=== PATIENT | male | born 1985 | race Caucasian/White ===

== ENCOUNTER → 2021-10-08 | Outpatient (CLI) | payer SELFPAY ==
--- NOTE | 2021-10-08 11:01 | CT ---
EXAMINATION TYPE: CT chest wo con DATE OF EXAM: 10/08/2021 COMPARISON: 10/08/2021 HISTORY: Bronchitis CT DLP: 460 mGycm. Automated Exposure Control for Dose Reduction was Utilized. TECHNIQUE: CT scan of the thorax is performed without IV contrast. FINDINGS: LUNGS: There is a large area of consolidated masslike attenuation involving the right upper lobe with air bronchograms most typical of pneumonia with right-sided hilar adenopathy no pleural effusion. Th ere is spotty nodular density seen in the right middle and lower lobe and peribronchial distribution although this could be postinflammatory. Neoplastic process would need to be excluded. Additional nod ular appearing density within the left lower lobe measuring 9 mm. Report called to the patient's refe rring clinician 10:57 AM 10/08/2021. MEDIASTINUM: Lack of IV contrast is noted to limit evaluation for mediastinal and especially hilar ad enopathy. There is coronary artery calcification. Aorta of normal caliber. Soft tissue prominence in the right hilum likely in the basis of adenopathy.. OTHER: There is a 5.7 cm lesion in the spleen which does not meet the criteria of a simple cyst measu ring 23 Hounsfield units. Liver low in attenuation correlate for hepatic steatosis.. IMPRESSION: 1. Large area of consolidation right upper lobe with air bronchograms and right hilar adenopathy. Dif ferential diagnosis would include a larger area of consolidative pneumonia. However, additional multi focal numerous nodular densities are seen in the right middle and lower lobe and left lower lobe. Alt david this could be postinfectious or postinflammatory. Neoplastic process should be excluded correla te clinically. 2. Indeterminate large splenic lesion measuring 5.7 cm. Recommend ultrasound. 3. Coronary artery atherosclerotic disease.
== END | disposition home or self-care (01) ==
LOC: RADCTMAIN 10:05
PROVIDERS: ATTEND Family Medicine
DX: I25.10 Atherosclerotic heart disease of native coronary artery without angina pectoris (principal); J98.4 Other disorders of lung; R59.0 Localized enlarged lymph nodes; D73.89 Other diseases of spleen
CPT/HCPCS: 71250

== ENCOUNTER 2021-10-10 11:00 | Inpatient (IN) | payer OTHER ==
[2021-10-10 11:59] LABS: Basophils % (A) 0 %; Eosinophils % (A) 0 %; HCT 37.5 % (39.0-53.0); HGB 12.7 gm/dL (13.0-17.5); Lymphocytes # (A) 0.6 k/uL (1.0-4.8); Lymphocytes % (A) 7 %; MCH 32.6 pg (25.0-35.0); MCHC 33.9 g/dL (31.0-37.0); MCV 96.1 fL (80.0-100.0); Mean Platelet Volume 8.4; Monocytes # (A) 0.4 k/uL (0-1.0); Monocytes % (A) 5 %; Neutrophils # (A) 7.5 k/uL (1.3-7.7); Neutrophils % (A) 86 %; Platelet Count 247 k/uL (150-450); RBC 3.91 m/uL (4.30-5.90); RDW 13.5 % (11.5-15.5); WBC 8.7 k/uL (3.8-10.6)
[2021-10-10] MEDS ORDERED: AZITHROMYCIN 500 MG in SODIUM CHLORIDE 0.9% 250 ML IVPB STA (12:02)
--- NOTE | 2021-10-10 12:08 | ED ---
General Adult HPI - General Chief complaint: Shortness of Breath Stated complaint: Sent by Lung DR Time Seen by Provider: 10/10/21 11:03 Source: patient, family, RN notes reviewed Mode of arrival: ambulatory Limitations: no limitations - History of Present Illness Initial comments: 36-year-old male presents emergency Department with chief complaint of abnormal chest x-ray, CT, shortness of breath. 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 Patient states he diagnosis irritated lungs he did follow up with urgent care who placed on some antibiotics and x-ray showed evidence of right lung consolidation patient had CT ordered 2 days ago w hich showed pneumonia, concern for neoplasm. Patient was either by pulmonary today and sent over for admission. - Related Data Allergies Allergy/AdvReac Type Severity Reaction Status Date / Time naproxen [From Aleve] Allergy Unknown Verified 10/10/21 11:08 Review of Systems ROS Statement: Those systems with pertinent positive or pertinent negative responses have been documented in the HPI. ROS Other: All systems not noted in ROS Statement are negative. Past Medical History Past Medical History: No Reported History History of Any Multi-Drug Resistant Organisms: None Reported Past Surgical History: No Surgical Hx Reported Past Psychological History: No Psychological Hx Reported Smoking Status: Never smoker Past Alcohol Use History: Occasional Past Drug Use History: None Reported General Exam Limitations: no limitations General appearance: alert, in no apparent distress Head exam: Present: atraumatic, normocephalic, normal inspection Eye exam: Present: normal appearance, PERRL, EOMI. Absent: scleral icterus, conjunctival injection, periorbital swelling ENT exam: Present: normal exam, normal oropharynx, mucous membranes moist Neck exam: Present: normal inspection. Absent: tenderness, meningismus, lymphadenopathy Respiratory exam: Present: rhonchi (Right). Absent: normal lung sounds bilaterally, respiratory distress, wheezes, rales, stridor Cardiovascular Exam: Present: regular rate, normal rhythm, normal heart sounds. Absent: systolic murmur, diastolic murmur, rubs, gallop, clicks Course Vital Signs 10/10/21 11:04 Temperature 97.9 F Pulse Rate 104 H Respiratory 20 Rate Blood Pressure 152/98 O2 Sat by Pulse 98 Oximetry Medical Decision Making - Medical Decision Making I did discuss the case with Dr. Rolon who evaluated the patient in office patient was evaluated by Dr. Deleon in the emergency Department, case discussed with some physician who accepts admission. Patient will have blood cultures, Legionella testing, placed on antibiotics - Lab Data Result diagrams: 10/10/21 11:43 Lab Results 10/10/21 Range/Units 11:43 WBC 8.7 (3.8-10.6) k/uL RBC 3.91 L (4.30-5.90) m/uL Hgb 12.7 L (13.0-17.5) gm/dL Hct 37.5 L (39.0-53.0) % MCV 96.1 (80.0-100.0) fL MCH 32.6 (25.0-35.0) pg MCHC 33.9 (31.0-37.0) g/dL RDW 13.5 (11.5-15.5) % Plt Count 247 (150-450) k/uL MPV 8.4 Neutrophils % 86 % Lymphocytes % 7 % Monocytes % 5 % Eosinophils % 0 % Basophils % 0 % Neutrophils # 7.5 (1.3-7.7) k/uL Lymphocytes # 0.6 L (1.0-4.8) k/uL Monocytes # 0.4 (0-1.0) k/uL Eosinophils # 0.0 (0-0.7) k/uL Basophils # 0.0 (0-0.2) k/uL Disposition Clinical Impression: Pneumonia, Lung consolidation Disposition: ADMITTED IP TO THIS HOSP Condition: Fair Referrals: Ricky Finn DO [Primary Care Provider] - 1-2 days Time of Disposition: 11:50
[2021-10-10 12:09] LABS: ALT 23 U/L (4-49); AST 36 U/L (17-59); African American GFR (CKD) >90 (>60 ml/min/1.73 sqM); Albumin 3.5 g/dL (3.5-5.0); Alkaline Phosphatase 72 U/L (38-126); Anion Gap 13 mmol/L; Blood Urea Nitrogen 22 mg/dL (9-20); Carbon Dioxide 22 mmol/L (22-30); Chloride 106 mmol/L (98-107); Glucose 132 mg/dL (74-99); Non-African American GFR(CKD) >90 (>60 ml/min/1.73 sqM); Potassium 3.4 mmol/L (3.5-5.1); Sodium 141 mmol/L (137-145); Total Bilirubin 0.4 mg/dL (0.2-1.3); Total Protein 6.9 g/dL (6.3-8.2)
[2021-10-10] MEDS ORDERED: PNEUMONIA PROTOCOL UTILIZED 1 EACH MISC PO PRN (12:09)
[2021-10-10 12:29] LABS: INR 0.9 (<1.2); Partial Thromboplastin Time 24.9 sec (22.0-30.0); Prothrombin Time 9.7 sec (9.0-12.0)
--- NOTE | 2021-10-10 12:45 | P.HPIM ---
History of Present Illness H&P Date: 10/10/21 Chief Complaint: Chest congestion and coughing Patient is a 36-year-old male with no significant past medical history who was sent to the ED by pulmonology for further workup of an abnormal computed tomography scan that was done 2 days ago. Patient states that he has been c oughing and feels congestion in his lungs for about a year. He states that a couple of days ago he was using some chemical on a washer to clean some aluminum and this irritated his lungs which made his congestion worse so he went to the urgent care where they gave him steroids and antibiotics and had him get a computed tomography scan. Patient then followed up with pulmonology who told him to come to the ED for further workup because the computed tomography scan showed large area of consolidation in the right upper lobe with right hilar adenopathy concerning for consolidative pneumonia versus neoplasm. Patient stated that sometimes he does have hemoptysis especially after he uses his albu terol inhaler and also productive cough that is greenish color. Patient has already been seen by pulmonology and he was started on azithromycin and Rocephin. Plan was for bronchoscopy however patient ate so bronchoscopy will be done tomorrow. 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 Review of Systems 10 ROS reviewed and are negative except as noted in HPI Past Medical History Past Medical History: No Reported History History of Any Multi-Drug Resistant Organisms: None Reported Past Surgical History: No Surgical Hx Reported Past Psychological History: No Psychological Hx Reported Smoking Status: Never smoker Past Alcohol Use History: Occasional Past Drug Use History: None Reported Medications and Allergies Allergies Allergy/AdvReac Type Severity Reaction Status Date / Time naproxen [From Aleve] Allergy Unknown Verified 10/10/21 11:08 Physical Exam Osteopathic Statement: *. No significant issues noted on an osteopathic structural exam other than those noted in the History and Physical/Consult. Vitals: Vital Signs Temp Pulse Resp BP Pulse Ox 10/10/21 11:04 97.9 F 104 H 20 152/98 98 Intake and Output 10/09/21 10/10/21 10/10/21 22:59 06:59 14:59 Other: Weight 95.254 kg General: [Alert and oriented, well nourished, no acute distress]. Eye: [PERRL, EOMI, normal conjunctiva]. HENT: [Normocephalic, clear tympanic membranes, normal hearing, moist oral mucosa, no scleral icterus, no sinus tenderness]. Neck: [Supple, non-tender, no carotid bruits, no JVD, no lymphadenopathy]. Lungs: [Clear to auscultation and percussion, non-labored respiration]. Heart: [Normal rate, regular rhythm, no murmur, gallop or edema]. Abdomen: [Soft, non-tender, non-distended, normal bowel sounds, no masses]. Musculoskeletal: [Normal range of motion and strength, no tenderness or swelling ]. Skin: [Skin is warm, dry and pink, no rashes or lesions]. Neurologic: [Awake, alert, and oriented X3, CN II-XII intact]. Psychiatric: [Cooperative, appropriate mood and affect]. Results CBC & Chem 7: 10/10/21 11:43 10/10/21 11:43 Labs: Abnormal Lab Results - Last 24 Hours (Table) 10/10/21 10/10/21 10/10/21 Range/Units 11:43 11:43 11:43 RBC 3.91 L (4.30-5.90) m/uL Hgb 12.7 L (13.0-17.5) gm/dL Hct 37.5 L (39.0-53.0) % Lymphocytes # 0.6 L (1.0-4.8) k/uL Potassium 3.4 L (3.5-5.1) mmol/L BUN 22 H (9-20) mg/dL Glucose 132 H (74-99) mg/dL Plasma Lactic Acid Freedom 2.2 H* (0.7-2.0) mmol/L Assessment and Plan Assessment: Right upper lobe consolidation with right hilar adenopathy Patient meets sepsis criteria (tachycardia and tachypnea) -Unclear etiology at this time but differential does include pneumonia versus neoplasm versus other etiology -We'll start the patient on IV Rocephin and azithromycin -Follow up on blood cultures -Obtain sputum culture -Check Legionella antigen -Patient scheduled for bronchoscopy tomorrow -Nothing by mouth past midnight -Patient currently satting well on room air -Lactic acid is 2.2. No need for fluid boluses lactic acid is less than 4 and patient is normotensive. CODE STATUS:full code DVT prophylaxis: mechanical Discussed with: Patient, ER, rn Anticipated length of stay < than [address]: home A total of 50 minutes was spent on the care of this complex patient more than 50% of the time was spent in counseling and care coordination.
[2021-10-10] MEDS ORDERED: IPRATROPIUM-ALBUTEROL 3 ML NEB INHALATION STA (13:40)
[2021-10-10] MEDS: IPRATROPIUM-ALBUTEROL 3 ML NEB INHALATION SCH ×3 (15:23→19:57)
--- NOTE | 2021-10-10 15:37 | P.CNPUL ---
History of Present Illness Consult date: 10/10/21 Requesting physician: Ricky Chang Reason for consult: dyspnea, chest pain, pneumonia, abnormal CXR/CT Chief complaint: Shortness of breath, right-sided pleuritic chest discomfort History of present illness: 36-year-old male patient who was seen for the first time today in the pulmonary office by Dr. Rolon on 10/10/2021 40 evaluation of extensive right lung pneumonia. Patient reports having symptoms for several weeks, with right-sided pleuritic chest discomfort, and dyspnea. He had a chest x-ray done at the urgent care clinic and was found to have an extensive consolidation of the right upper lobe. Patient's primary care physician, Dr. Finn obtained computed tomography scan of the chest which showed significant dense consolidation of the right upper lobe, with air bronchograms and right hilar adenopathy. There were other multifocal numerous nodular densities in the right middle and right lower lobe and left lower lobe with the possibility of postinfectious or postinfl ammatory etiology. Neoplastic process could not be completely excluded although infectious process was favored. There was an indeterminate large splenic lesion measuring 5.7 cm with a recommendation for follow-up ultrasound. Patient reports being treated with antibiotics on outpatient basis and she would feel better while on antibiotics however start feeling worse after completion of antibiotics. Patient reports sweats and chills, and in the last couple of days he reports having episodic hemoptysis. 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 More recently he was power washing a trailer with some acid material and there was some missed, and off this treatment and the patient was inhaling the fumes, made him quite short of breath. Patient is a lifetime nonsmoker. No history of asthma. No history of emphysema or previous pneumonias. Patient is currently taking a course of Levaquin 500 mg via mouth daily and doxycycline in addition to prednisone. He was started on a rescue inhaler. Repeat chest x-ray was done showing a dense consolidation of the right upper lobe which remained essentially unchanged. He does not have any exposure to birds. He has several animals around the house including doxepin and dogs and cats. In view of lack of improvement on patient's chest x-ray findings and continued shortness of breath, sweats, hemoptysis, patient was sent to the emergency department for evaluation, IV antibiotics, and possible bronchoscopy with BAL. Lab work in the ER showed white blood cell count of 8.7, hemoglobin of 12.7, coagulation profile was within normal limits, sodium is 141, potassium is 3.4, chloride is 106, CO2 is 22, BUN is 22, creatinine 0.80, lactic acid is 2.2, LFTs were within normal limits, troponin was less than 0.012. Blood cultures have been sent, sputum cultures have been ordered, she was started on azithromycin and Rocephin, breathing treatments, Legionella urine antigen has been ordered and pending Review of Systems All systems: negative Constitutional: Reports chills, Reports fatigue, Reports fever Eyes: denies blurred vision, denies pain Ears, nose, mouth and throat: Denies headache, Denies sore throat Cardiovascular: Reports shortness of breath, Denies chest pain Respiratory: Reports cough with sputum, Reports dyspnea, Reports hemoptysis, Denies cough Gastrointestinal: Denies abdominal pain, Denies diarrhea, Denies nausea, Denies vomiting Musculoskeletal: Denies myalgias Integumentary: Denies pruritus, Denies rash Neurological: Denies numbness, Denies weakness Psychiatric: Denies anxiety, Denies depression Endocrine: Denies fatigue, Denies weight change Past Medical History Past Medical History: No Reported History History of Any Multi-Drug Resistant Organisms: None Reported Past Surgical History: No Surgical Hx Reported Past Psychological History: No Psychological Hx Reported Smoking Status: Never smoker Past Alcohol Use History: Occasional Past Drug Use History: None Reported - Past Family History Father History Unknown: Yes Mother Family Medical History: Cancer Medications and Allergies Home Medications Medication Instructions Recorded Confirmed Type Doxycycline Hyclate 100 mg PO BID 10/10/21 10/10/21 History HYDROcodone/APAP 5-325MG [[place] 1 tab PO BID 10/10/21 10/10/21 History 5-325] Levofloxacin [Levaquin] 500 mg PO DAILY 10/10/21 10/10/21 History SILVER sulfADIAZINE Cream 1 applic TOPICAL DAILY PRN 10/10/21 10/10/21 History [Silvadene 1% Cream] predniSONE [Deltasone] 40 mg PO DAILY 10/10/21 10/10/21 History Allergies Allergy/AdvReac Type Severity Reaction Status Date / Time naproxen [From Aleve] Allergy Rash/Hives Verified 10/10/21 13:08 Physical Exam Vitals: Vital Signs Temp Pulse Resp BP Pulse Ox 10/10/21 11:04 97.9 F 104 H 20 152/98 98 Intake and Output 10/09/21 10/10/21 10/10/21 22:59 06:59 14:59 Other: Weight 95.254 kg GENERAL EXAM: Alert, very pleasant, 36-year-old white male, seen in the emergency department on room air pulse ox of 98% comfortable in no apparent distress. HEAD: Normocephalic/atraumatic. EYES: Normal reaction of pupils, equal size. Conjunctiva pink, sclera white. NOSE: Clear with pink turbinates. THROAT: No erythema or exudates. NECK: No masses, no JVD, no thyroid enlargement, no adenopathy. CHEST: No chest wall deformity. Symmetrical expansion. LUNGS: Equal air entry with diminished breath sounds and inspiratory crackles over right mid and lower lobe CVS: Regular rate and rhythm, normal S1 and S2, no gallops, no murmurs, no rubs ABDOMEN: Soft, nontender. No hepatosplenomegaly, normal bowel sounds, no guarding or rigidity. EXTREMITIES: No clubbing, no edema, no cyanosis, 2+ pulses and upper and lower extremities. MUSCULOSKELETAL: Muscle strength and tone normal. SPINE: No scoliosis or deformity SKIN: No rashes CENTRAL NERVOUS SYSTEM: Alert and oriented -3. No focal deficits, tone is normal in all 4 extremities. PSYCHIATRIC: Alert and oriented -3. Appropriate affect. Intact judgment and insight. Results - Laboratory Findings CBC and BMP: 10/10/21 11:43 10/10/21 11:43 Abnormal lab findings: Abnormal Labs 10/10/21 10/10/21 10/10/21 11:43 11:43 11:43 RBC 3.91 L Hgb 12.7 L Hct 37.5 L Lymphocytes # 0.6 L Potassium 3.4 L BUN 22 H Glucose 132 H Plasma Lactic Acid Freedom 2.2 H* - Diagnostic Findings CT scan - chest: report reviewed, image reviewed Assessment and Plan Plan: Assessment: #1. Right upper lobe pneumonia, possibly pneumococcal pneumonia, or Legionella pneumonia, community acquired, with failure of outpatient treatment. Patient has been symptomatic for several weeks with shortness of breath, pleuritic chest pain, with continued dense consolidation of right upper lobe on the chest x-ray. Possibility of neoplasm is not entirely excluded, but infectious etiology seems to be more likely #2. Lifetime nonsmoker #3. Lactic acidosis, mild, improved #4. Periodic difficulty swallowing and reflux Plan: We'll continue with azithromycin and Rocephin for empiric antibiotic coverage Blood cultures have been sent, urine Legionella antigen has been sent and pending Obtain a pro-calcitonin level, sputum specimen GI and DVT prophylaxis, gentle IV hydration We'll consult GI service for evaluation of periodic difficulty swallowing and gastric reflux symptoms Keep patient nothing by mouth after midnight We'll schedule for bronchoscopy with BAL tomorrow on 10/11/[address] Butts I have personally seen and examined the patient, performed the documentation and the assessment and plan as written. Number of minutes spent on the visit: [15] Time with Patient: Greater than 30
[2021-10-10] MEDS ORDERED: hydrALAZINE HCL 20 MG/ML 1 ML VIAL IVP STA (17:12)
[2021-10-10] MEDS ORDERED: IPRATROPIUM-ALBUTEROL 3 ML NEB INHALATION PRN (18:51)
[2021-10-10] MEDS: LOSARTAN-HCTZ 50-12.5 MG 1 EACH TAB PO SCH (21:17)
[2021-10-10] MEDS: HYDROcodone/APAP 5-325MG 1 EACH TAB PO PRN (21:17)
[2021-10-10] MEDS: SODIUM CHLORIDE 0.9% 1,000 ML IV SCH (21:18)
[2021-10-10] MEDS ORDERED: MELATONIN 5 MG TABLET PO PRN (23:06)
[2021-10-11] MEDS: IPRATROPIUM-ALBUTEROL 3 ML NEB INHALATION SCH ×5 (07:19→19:13)
--- NOTE | 2021-10-11 07:26 | XR ---
EXAMINATION TYPE: XR chest 2V DATE OF EXAM: 10/11/2021 COMPARISON: Chest CT 3 days ago HISTORY: Pneumonia. TECHNIQUE: Frontal and lateral views of the chest are obtained. FINDINGS: Persistent peripheral right midlung masslike consolidation corresponding to large suspecte d pneumonia involving primarily the right upper lobe with some right middle lobe involvement. Patchy groundglass opacities in the right lower lobe are redemonstrated. Left lung remains clear. The cardia c silhouette size is stable and within normal limits. The osseous structures are intact. IMPRESSION: Persistent peripheral large right lung focal pneumonia with additional multifocal infilt rates in the right lower lobe. No significant change from most recent x-ray.
[2021-10-11] MEDS: ENOXAPARIN 40 MG/0.4 ML SYRINGE SQ SCH (08:17)
[2021-10-11] MEDS: PANTOPRAZOLE 40 MG/10 ML VIAL IVP SCH (08:22)
[2021-10-11] MEDS: LOSARTAN-HCTZ 50-12.5 MG 1 EACH TAB PO SCH (08:23)
--- NOTE | 2021-10-11 10:16 | P.PN ---
Subjective Progress Note Date: 10/11/21 36-year-old male patient who was seen for the first time today in the pulmonary office by Dr. Rolon on 10/10/2021 40 evaluation of extensive right lung pneumonia. Patient reports having symptoms for several weeks, with right-sided pleuritic chest discomfort, and dyspnea. He had a chest x-ray done at the urgent care clinic and was found to have an extensive consolidation of the right upper lobe. Patient's primary care physician, Dr. Finn obtained computed tomography scan of the chest which showed significant dense consolidation of the right upper lobe, with air bronchograms and right hilar adenopathy. There were other multifocal numerous nodular densities in the right middle and right lower lobe and left lower lobe with the possibility of postinfectious or postinflammatory etiology. Neoplastic process could not be completely excluded although infectious process was favored. There was an indeterminate large splenic lesion measuring 5.7 cm with a recommendation for follow-up ultrasound. Patient reports being treated with antibiotics on outpatient basis and she would feel better while on antibiotics however start feeling worse after completion of antibiotics. Patient reports sweats and chills, and in the last couple of days he reports having episodic hemoptysis. 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 More recently he was power washing a trailer with some acid material and there was some missed, and off this treatment and the patient was inhaling the fumes, made him quite short of breath. Patient is a lifetime nonsmoker. No history of asthma. No history of emphysema or previous pneumonias. Patient is currently taking a course of Levaquin 500 mg via mouth daily and doxycycline in addition to prednisone. He was started on a rescue inhaler. Repeat chest x-ray was done showing a dense consolidation of the right upper lobe which remained essentially unchanged. He does not have any exposure to birds. He has several animals around the house including doxepin and dogs and cats. In view of lack of improvement on patient's chest x-ray findings and continued shortness of breath, sweats, hemoptysis, patient was sent to the emergency department for evaluation, IV antibiotics, and possible bronchoscopy with BAL. Lab work in the ER showed white blood cell count of 8.7, hemoglobin of 12.7, coagulation profile was within normal limits, sodium is 141, potassium is 3.4, chloride is 106, CO2 is 22, BUN is 22, creatinine 0.80, lactic acid is 2.2, LFTs were within normal limits, troponin was less than 0.012. Blood cultures have been sent, sputum cultures have been ordered, she was started on azithromycin and Rocephin, breathing treatments, Legionella urine antigen has been ordered and pending The patient is seen today 10/11/2021 in follow-up on the regular medical floor. He is currently resting fairly comfortably in bed. Awake and alert in no acute distress. Still with some right-sided chest discomfort. Still dyspneic with minimal exertion. He is maintaining O2 saturations in the mid 90s on room air. He's been afebrile. Hemodynamically stable. Chest x-ray continues to show persistent peripheral large right lung focal pneumonia with additional multifocal infiltrates in the right lower lobe. Legionella antigen was negative. Zamudio virus by PCR negative. Pro calcitonin 2.93. He is continued on ceftriaxone and azithromycin along with bronchodilators. Lovenox for DVT prophylaxis. Normal saline at 75 ML's per hour. Objective - Vital Signs Vital signs: Vital Signs Temp 98.5 F 10/11/21 02:00 Pulse 90 10/11/21 07:32 Resp 18 10/11/21 02:00 BP 136/88 10/11/21 02:00 Pulse Ox 96 10/11/21 02:00 Intake & Output 10/10/21 10/11/21 10/11/21 18:59 06:59 18:59 Intake Total 0 Balance 0 Weight 95.254 kg Intake: Oral 0 Other: Voiding Method Toilet Toilet # Voids 2 - Exam GENERAL EXAM: Alert, pleasant 36-year-old male patient, on room air, fairly comfortable in no apparent distress. HEAD: Normocephalic. EYES: Normal reaction of pupils, equal size. NOSE: Clear with pink turbinates. THROAT: No erythema or exudates. NECK: No masses, no JVD. CHEST: No chest wall deformity. LUNGS: Equal air entry with crackles, rhonchi in the right lung. CVS: S1 and S2 normal with no audible murmur, regular rhythm. ABDOMEN: No hepatosplenomegaly, normal bowel sounds, no guarding or rigidity. SPINE: No scoliosis or deformity SKIN: No rashes CENTRAL NERVOUS SYSTEM: No focal deficits, tone is normal in all 4 extremities. EXTREMITIES: There is no peripheral edema. No clubbing, no cyanosis. Peripheral pulses are intact. - Labs CBC & Chem 7: 10/10/21 11:43 10/10/21 11:43 Labs: Abnormal Lab Results - Last 24 Hours (Table) 10/10/21 10/10/21 10/10/21 Range/Units 11:43 11:43 11:43 RBC 3.91 L (4.30-5.90) m/uL Hgb 12.7 L (13.0-17.5) gm/dL Hct 37.5 L (39.0-53.0) % Lymphocytes # 0.6 L (1.0-4.8) k/uL Potassium 3.4 L (3.5-5.1) mmol/L BUN 22 H (9-20) mg/dL Glucose 132 H (74-99) mg/dL Plasma Lactic Acid Freedom 2.2 H* (0.7-2.0) mmol/L Procalcitonin (0.02-0.09) ng/mL 10/10/21 Range/Units 11:43 RBC (4.30-5.90) m/uL Hgb (13.0-17.5) gm/dL Hct (39.0-53.0) % Lymphocytes # (1.0-4.8) k/uL Potassium (3.5-5.1) mmol/L BUN (9-20) mg/dL Glucose (74-99) mg/dL Plasma Lactic Acid Freedom (0.7-2.0) mmol/L Procalcitonin 2.93 H (0.02-0.09) ng/mL Assessment and Plan Assessment: Right upper lobe pneumonia, possibly pneumococcal pneumonia, or Legionella pneumonia, community acquired, with failure of outpatient treatment. Patient has been symptomatic for several weeks with shortness of breath, pleuritic chest pain, with continued dense consolidation of right upper lobe on the chest x-ray. Possibility of neoplasm is not entirely excluded, but infectious etiology seems to be more likely. Legionella screen negative. Coronavirus negative. Blood and sputum cultures pending. Pro-calcitonin 2.93. Lifetime nonsmoker Lactic acidosis, mild, improved Periodic difficulty swallowing and reflux Large splenic lesion measuring 5.7 cm. Plan: The patient was seen and evaluated Continued on ceftriaxone and azithromycin Legionella screen negative, coronavirus negative Plan is for bronchoscopy with BAL today Obtain ultrasound of the spleen We will continue to follow and make further recommendations based on his clinical status I have personally seen and examined the patient, performed the documentation and the assessment and plan as written. Number of minutes spent on the visit: 10.
[2021-10-11] MEDS: AZITHROMYCIN 500 MG in SODIUM CHLORIDE 0.9% 250 ML IVPB SCH (10:28)
[2021-10-11] MEDS: SODIUM CHLORIDE 0.9% 1,000 ML IV SCH ×2 (11:51→20:05)
[2021-10-11] MEDS ORDERED: IV FLUID CONTINUATION 700 ML IV ONE (12:14)
[2021-10-11] MEDS ORDERED: PROPOFOL 10 MG/ML 20 ML VIAL IV ONE (12:18)
[2021-10-11] MEDS ORDERED: MIDAZOLAM 2 MG/2 ML VIAL ONE (12:18)
[2021-10-11] MEDS ORDERED: KETAMINE 10 MG/ML 20 ML VIAL ONE (12:18)
[2021-10-11] MEDS ORDERED: fentaNYL (PF) 50 MCG/ML 2 ML AMP ONE (12:18)
[2021-10-11] MEDS ORDERED: LIDOCAINE 2% INJ 20 MG/ML (2 ML VIAL) ONE (12:18)
[2021-10-11] MEDS ORDERED: LIDOCAINE 2% INJ 20 MG/ML INTRATRACH ONE (12:36)
--- NOTE | 2021-10-11 13:37 | OP ---
OPERATIVE REPORT OPERATIVE REPORT: Bronchoscopy, endobronchial biopsies of the right upper lobe bronchus, bronchoalveolar lavage of the right upper lobe, brushings of the right upper lobe bronchus, and BAL of the right upper lobe. The patient was given general anesthesia; initially started out with IV conscious sedation, but because of persistent vigorous cough and difficulty getting samples from the right upper lobe and adequate visualization of the mucosa, we changed anesthesia to general anesthetic. Patient was intubated by JOSE and he was placed on ventilation before doing any biopsies. PREOPERATIVE DIAGNOSIS: Right upper lobe pneumonia. POSTOPERATIVE DIAGNOSIS: Right upper lobe pneumonia. ANESTHESIA USED: As noted above. PROCEDURE DESCRIPTION: The patient was placed in supine position. He was initially given IV conscious sedation, and I was able to go through the right naris down to the area of the vocal cords. The vocal cords were patent. Then as I went down to the right mainstem bronchus, I visualized some purulent secretions in the right mainstem bronchus, and as I went into the right upper lobe, there was evidence of secretions with yellow color to them and mixed with blood. However, the patient had a significant amount of cough and it was a vigorous cough. I could not truly visualize the right upper lobe mucosa and the right upper lobe bronchus. Then I decided to go ahead and do a simple lavage. Then as I came out of the airways, we decided to go ahead and place the patient under general anesthesia and re-examine the right upper lobe. After the patient was intubated by [employer], I went back again with the bronchoscope. I visualized the right upper lobe very well. The mucosa was noted to be bronchiectatic, but no evidence of any endobronchial tumor. Biopsies of the nila of the right upper lobe bronchus were done, and BAL again was done of the right upper lobe. Then we examined the right middle lobe, right lower lobe, left upper lobe lingula and left lower lobe. There was no evidence of any purulent secretions. Mind you, during the second evaluation of the right upper lobe there were hardly any purulent secretions in the right upper lobe and there was again no evidence of any endobronchial tumor. Brushings of the mucosa were also done of the right upper lobe. Procedure was well tolerated. No complications. The patient will be extubated by [employer] soon. The fluid we obtained from the upper lobe was sent for different diagnostic studies. MMODL / IJN: [id number] /
[2021-10-11] MEDS: HYDROcodone/APAP 5-325MG 1 EACH TAB PO PRN ×2 (14:13→17:51)
--- NOTE | 2021-10-11 15:14 | US ---
EXAMINATION TYPE: US abdomen limited DATE OF EXAM: 10/11/2021 COMPARISON: NONE CLINICAL HISTORY: 5.7 cm lesion on spleen. EXAM MEASUREMENTS: Spleen: 13.7 cm Left Kidney: 12.3 x 5.6 x 4.3 cm Technically difficult, patient unable to hold his breath due to extensive coughing. 1. Spleen: measures large, Splenic lesion appears anechoic with posterior acoustic enhancement. 2. Left Kidney: wnl as seen, somewhat obscured by overlying bowel Anechoic egg shaped mass measuring 6.2 x 4.4 x 7.0, probable cyst IMPRESSION: Splenic lesion is favored to represent a cyst given CT and ultrasound appearance. This could represen t traumatic pseudocyst versus other etiologies. Correlation with prior history of trauma.
[2021-10-11] MEDS ORDERED: RX INFO: IV CONTRAST WAS GIVEN 1 EACH MISC MISCELLANE PRN (16:26)
--- NOTE | 2021-10-11 16:34 | XR ---
EXAMINATION TYPE: XR chest 1V portable DATE OF EXAM: 10/11/2021 4:28 PM COMPARISON: CT chest 10/08/2021. TECHNIQUE: XR chest 1V portable Frontal view of the chest. CLINICAL INDICATION:Male, 36 years old with history of pain right lung post bronch; FINDINGS: Lungs/Pleura: Similar consolidation within the right mid and upper lung. No evidence of pneumothorax. Pulmonary vascularity: Unremarkable. Heart/mediastinum: Cardiomediastinal silhouette is unremarkable. Musculoskeletal: No acute osseous pathology. IMPRESSION: Similar consolidation changes within the right mid upper lung without evidence for pneumothorax. No s ignificant change from prior.
--- NOTE | 2021-10-11 17:06 | CT ---
EXAMINATION TYPE: CT angio chest CT DLP: 460.7 mGycm, Automated exposure control for dose reduction was used. DATE OF EXAM: 10/11/2021 4:51 PM COMPARISON: . Chest radiograph from same day. Multiple CTs of the chest with most recent on 2. CLINICAL INDICATION:Male, 36 years old with history of PULMONARY EMBOLUS; cough, chest pain TECHNIQUE/CONTRAST: CTA scan of the thorax is performed with IV Contrast, patient injected with 57cc mL of Isovue 370, pu lmonary embolism protocol. MIP images are created and reviewed. FINDINGS: Pulmonary Artery: There is no evidence for a central filling defect within the pulmonary vasculature to suggest acute pulmonary embolism. Limited evaluation secondary to bolus timing. The pulmonary elisa ry is of normal size. Lungs/Pleura: Large area of consolidation within the right upper lobe which is similar prior. Patchy consolidation changes are seen within the right lower and right middle lobe as well as the left lower lobe to lesser extent. No evidence of pleural effusion or pneumothorax. Airway: Large airways are patent. Heart: Heart is within normal limits for size.. Vasculature: No evidence of aortic aneurysm. Mediastinum: No gross evidence of adenopathy. Musculoskeletal: No acute osseous abnormalities Soft Tissues: Unremarkable. Lower neck: No significant findings. Upper Abdomen: Similar hepatic cyst measuring up to 5.8 cm. IMPRESSION: 1. No evidence of central pulmonary embolism. Limited evaluation secondary to bolus timing. 2. Similar consolidation changes of the right upper lobe with scattered patchy consolidation changes throughout the remainder of the lungs. Correlate for pneumonia.
--- NOTE | 2021-10-11 17:21 | P.PN ---
Subjective Progress Note Date: 10/11/21 Principal diagnosis: Pneumonia Patient complaining of right upper chest pain. Patient states that he was worse after he got the bronchoscopy. Patient states that they had to sedate him really well since he kept on trying to pull out the scope. Patient stated that she still continuing to cough. He remained satting well on room air. Objective - Vital Signs Vital signs: Vital Signs Temp 97.5 F L 10/11/21 13:00 Pulse 92 10/11/21 15:35 Resp 18 10/11/21 02:00 BP 133/79 10/11/21 13:00 Pulse Ox 98 10/11/21 13:00 Intake & Output 10/10/21 10/11/21 10/11/21 18:59 06:59 18:59 Intake Total 0 600 Balance 0 600 Weight 95.254 kg Intake: IV 600 Oral 0 Other: Voiding Method Toilet Toilet # Voids 2 - Exam General examination - Alert and Oriented 3 in NAD Heart - + S1S2 no murmurs Lungs -diminished breath sounds bilaterally Abdomen soft NT ND +ve BS Extremities - No edema [employer] - Moving all 4 extremities spontaneously Psych - Calm and cooperative - Labs CBC & Chem 7: 10/10/21 11:43 10/10/21 11:43 Labs: Abnormal Lab Results - Last 24 Hours (Table) 10/10/21 Range/Units 11:43 Procalcitonin 2.93 H (0.02-0.09) ng/mL Microbiology - Last 24 Hours (Table) 10/11/21 12:25 Fungal Culture - Preliminary Bronchoalviolar Lavage - Right 10/11/21 12:25 Acid Fast Bacilli Culture - Preliminary Bronchoalviolar Lavage - Right 10/11/21 12:25 Bronchial Washings Culture - Preliminary Bronchial Washings - Right 10/10/21 11:43 Blood Culture - Preliminary Blood No Growth after 24 hours 10/10/21 11:30 Blood Culture - Preliminary Blood No Growth after 24 hours 10/11/21 07:30 Sputum Culture - Preliminary Sputum Assessment and Plan Assessment: Right upper lobe consolidation with right hilar adenopathy Patient meets sepsis criteria (tachycardia and tachypnea) -Unclear etiology at this time but differential does include pneumonia versus neoplasm versus other etiology -Patient calcitonin is elevated so likely pneumonia -We'll start the patient on IV Rocephin and azithromycin -Follow up on blood cultures -Follow up on sputum cultures from bronchoscopy done on 10/11/2021 -Legionella antigen is negative -Patient currently satting well on room air -Lactic acid normalized CODE STATUS:full code DVT prophylaxis: mechanical Discussed with: Patient, ER, rn Anticipated length of stay < than [address]: home A total of 50 minutes was spent on the care of this complex patient more than 50% of the time was spent in counseling and care coordination.
[2021-10-11 18:39] LABS: Appearance,BF Blood Tinged
[2021-10-11] MEDS: HYDROmorphone 1 MG/ML 1 ML SYRINGE IVP PRN (20:17)
[2021-10-12] MEDS: SODIUM CHLORIDE 0.9% 1,000 ML IV SCH ×2 (04:20→22:39)
[2021-10-12] MEDS: HYDROcodone/APAP 5-325MG 1 EACH TAB PO PRN (04:20)
[2021-10-12] MEDS: HYDROmorphone 1 MG/ML 1 ML SYRINGE IVP PRN ×4 (05:58→23:12)
[2021-10-12] MEDS: IPRATROPIUM-ALBUTEROL 3 ML NEB INHALATION SCH ×4 (07:07→19:38)
[2021-10-12] MEDS: ENOXAPARIN 40 MG/0.4 ML SYRINGE SQ SCH (08:29)
[2021-10-12] MEDS: PANTOPRAZOLE 40 MG/10 ML VIAL IVP SCH (08:29)
[2021-10-12] MEDS: LOSARTAN-HCTZ 50-12.5 MG 1 EACH TAB PO SCH (08:30)
[2021-10-12] MEDS: AZITHROMYCIN 500 MG in SODIUM CHLORIDE 0.9% 250 ML IVPB SCH (08:30)
[2021-10-12 09:33] LABS: HCT 39.5 % (39.6-50.0); HGB 12.9 g/dL (13.0-17.0); MCH 31.4 pg (27.0-32.0); MCHC 32.7 g/dL (32.0-37.0); MCV 96.1 fL (80.0-97.0); Mean Platelet Volume 10.6 fL (9.5-12.2); NRBC Per 100 WBC 0 /100 WBCS (0.0-0.0); Platelet Count 264 X 10*3/uL (140-440); RBC 4.11 X 10*6/uL (4.40-5.60); RDW 13.3 % (11.5-14.5); WBC 12.22 X 10*3/uL (4.50-10.00)
[2021-10-12 10:06] LABS: African American GFR (CKD) 132.3 (60.0-200.0); Anion Gap 12.8 mmol/L (10.00-18.00); BUN/Creat Ratio 18.13 Ratio (12.00-20.00); Blood Urea Nitrogen 14.5 mg/dL (9.0-27.0); Calcium 8.6 mg/dL (8.7-10.3); Carbon Dioxide 22.2 mmol/L (20.0-27.5); Non-African American GFR(CKD) 114.1 (60.0-200.0); Potassium 3.2 mmol/L (3.5-5.5)
--- NOTE | 2021-10-12 12:10 | P.PN ---
Subjective Progress Note Date: 10/12/21 36-year-old male patient who was seen for the first time today in the pulmonary office by Dr. Rolon on 10/10/2021 40 evaluation of extensive right lung pneumonia. Patient reports having symptoms for several weeks, with right-sided pleuritic chest discomfort, and dyspnea. He had a chest x-ray done at the urgent care clinic and was found to have an extensive consolidation of the right upper lobe. Patient's primary care physician, Dr. Finn obtained computed tomography scan of the chest which showed significant dense consolidation of the right upper lobe, with air bronchograms and right hilar adenopathy. There were other multifocal numerous nodular densities in the right middle and right lower lobe and left lower lobe with the possibility of postinfectious or postinflammatory etiology. Neoplastic process could not be completely excluded although infectious process was favored. There was an indeterminate large splenic lesion measuring 5.7 cm with a recommendation for follow-up ultrasound. Patient reports being treated with antibiotics on outpatient basis and she would feel better while on antibiotics however start feeling worse after completion of antibiotics. Patient reports sweats and chills, and in the last couple of days he reports having episodic hemoptysis. 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 More recently he was power washing a trailer with some acid material and there was some missed, and off this treatment and the patient was inhaling the fumes, made him quite short of breath. Patient is a lifetime nonsmoker. No history of asthma. No history of emphysema or previous pneumonias. Patient is currently taking a course of Levaquin 500 mg via mouth daily and doxycycline in addition to prednisone. He was started on a rescue inhaler. Repeat chest x-ray was done showing a dense consolidation of the right upper lobe which remained essentially unchanged. He does not have any exposure to birds. He has several animals around the house including doxepin and dogs and cats. In view of lack of improvement on patient's chest x-ray findings and continued shortness of breath, sweats, hemoptysis, patient was sent to the emergency department for evaluation, IV antibiotics, and possible bronchoscopy with BAL. Lab work in the ER showed white blood cell count of 8.7, hemoglobin of 12.7, coagulation profile was within normal limits, sodium is 141, potassium is 3.4, chloride is 106, CO2 is 22, BUN is 22, creatinine 0.80, lactic acid is 2.2, LFTs were within normal limits, troponin was less than 0.012. Blood cultures have been sent, sputum cultures have been ordered, she was started on azithromycin and Rocephin, breathing treatments, Legionella urine antigen has been ordered and pending The patient is seen today 10/11/2021 in follow-up on the regular medical floor. He is currently resting fairly comfortably in bed. Awake and alert in no acute distress. Still with some right-sided chest discomfort. Still dyspneic with minimal exertion. He is maintaining O2 saturations in the mid 90s on room air. He's been afebrile. Hemodynamically stable. Chest x-ray continues to show persistent peripheral large right lung focal pneumonia with additional multifocal infiltrates in the right lower lobe. Legionella antigen was negative. Zamudio virus by PCR negative. Pro calcitonin 2.93. He is continued on ceftriaxone and azithromycin along with bronchodilators. Lovenox for DVT prophylaxis. Normal saline at 75 ML's per hour. The patient is seen today the 2021 in follow-up on the regular medical floor. He is currently sitting up in a chair at the bedside. Awake and alert. He is afebrile. Maintaining O2 saturations in the mid 90s on room air. He is having quite a bit of right-sided chest discomfort. CT angiogram ruled out pul monary embolism. There is no noted large area of consolidation within the right upper lobe with patchy consolidation changes in the right lower lobe and middle lobe as well. Splenic lesion measuring 6.2 x 4.4 x 7.0 considered probable cyst. He did undergo bronchoscopy with BAL yesterday. Cultures are pending. White count 12.2. Hemoglobin 12.9. Platelet count 264. Sodium 133. Potassium 3.2. BUN 14.5. Creatinine 0.8. He remains on antibiotics in the form of ceftriaxone and azithromycin along with bronchodilators. Lovenox for DVT prophylaxis. Objective - Vital Signs Vital signs: Vital Signs Temp 98.6 F 10/12/21 04:21 Pulse 92 10/12/21 10:52 Resp 20 10/12/21 04:21 BP 143/90 10/12/21 08:34 Pulse Ox 95 10/12/21 04:21 Intake & Output 10/11/21 10/12/21 10/12/21 18:59 06:59 18:59 Intake Total 1500 500 Balance 1500 500 Intake: IV 600 Intake, IV Titration 900 Amount Sodium Chloride 0.9% 1, 900 000 ml @ 75 mls/hr IV . [id number] [facility] Rx#:[id number] Oral 500 Other: Voiding Method Toilet Toilet Toilet # Voids 3 - Exam GENERAL EXAM: Alert, 36-year-old male patient, on room air, fairly comfortable in no apparent distress. HEAD: Normocephalic. EYES: Normal reaction of pupils, equal size. NOSE: Clear with pink turbinates. THROAT: No erythema or exudates. NECK: No masses, no JVD. CHEST: No chest wall deformity. LUNGS: Equal air entry with crackles, rhonchi in the right lung. CVS: S1 and S2 normal with no audible murmur, regular rhythm. ABDOMEN: No hepatosplenomegaly, normal bowel sounds, no guarding or rigidity. SPINE: No scoliosis or deformity SKIN: No rashes CENTRAL NERVOUS SYSTEM: No focal deficits, tone is normal in all 4 extremities. EXTREMITIES: There is no peripheral edema. No clubbing, no cyanosis. Peripheral pulses are intact. - Labs CBC & Chem 7: 10/12/21 05:50 10/12/21 05:50 Labs: Abnormal Lab Results - Last 24 Hours (Table) 10/12/21 10/12/21 Range/Units 05:50 05:50 WBC 12.22 H (4.50-10.00) X 10*3/uL RBC 4.11 L (4.40-5.60) X 10*6/uL Hgb 12.9 L (13.0-17.0) g/dL Hct 39.5 L (39.6-50.0) % Sodium 133 L (135-145) mmol/L Potassium 3.2 L (3.5-5.5) mmol/L Glucose 133 H (70-110) mg/dL Calcium 8.6 L (8.7-10.3) mg/dL Microbiology - Last 24 Hours (Table) 10/11/21 12:25 Gram Stain - Preliminary Bronchial Washings - Right Bronchial Washings Culture - Preliminary 10/11/21 07:30 Gram Stain - Preliminary Sputum Sputum Culture - Preliminary 10/11/21 12:25 Fungal Culture - Preliminary Bronchoalviolar Lavage - Right 10/11/21 12:25 Acid Fast Bacilli Culture - Preliminary Bronchoalviolar Lavage - Right 10/10/21 11:43 Blood Culture - Preliminary Blood No Growth after 24 hours 10/10/21 11:30 Blood Culture - Preliminary Blood No Growth after 24 hours Assessment and Plan Assessment: Right upper lobe pneumonia, possibly pneumococcal pneumonia, or Legionella pneumonia, community acquired, with failure of outpatient treatment. Patient has been symptomatic for several weeks with shortness of breath, pleuritic chest pain, with continued dense consolidation of right upper lobe on the chest x-ray. Possibility of neoplasm is not entirely excluded, but infectious etiology seems to be more likely. Legionella screen negative. Coronavirus negative. Blood and sputum cultures pending. Pro-calcitonin 2.93. Bronchoscopy with BAL, brushings and biopsies performed on 10/11/2021. Cultures and cytology pending. Lifetime nonsmoker Lactic acidosis, mild, improved Periodic difficulty swallowing and reflux Large splenic lesion measuring 5.7 cm, probable cyst Plan: The patient was seen and evaluated CAT scan, ultrasound, labs reviewed Continued on ceftriaxone and azithromycin Bronchoscopy cultures and cytology pending Add Solu-Medrol for pleuritic pain We will continue to follow I have personally seen and examined the patient, performed the documentation and the assessment and plan as written. Number of minutes spent on the visit: 10.
[2021-10-12] MEDS ORDERED: POTASSIUM CHLORIDE ER 20 MEQ TAB.ER PO STA (13:01)
--- NOTE | 2021-10-12 13:04 | P.PN ---
Subjective Progress Note Date: 10/12/21 Principal diagnosis: Pneumonia Patient says that his right upper quadrant chest pain has been worsening. He states that he has been worsening since the bronchoscopy. Objective - Vital Signs Vital signs: Vital Signs Temp 98.6 F 10/12/21 04:21 Pulse 92 10/12/21 10:52 Resp 20 10/12/21 04:21 BP 143/90 10/12/21 08:34 Pulse Ox 95 10/12/21 04:21 Intake & Output 10/11/21 10/12/21 10/12/21 18:59 06:59 18:59 Intake Total 1500 500 Balance 1500 500 Intake: IV 600 Intake, IV Titration 900 Amount Sodium Chloride 0.9% 1, 900 000 ml @ 75 mls/hr IV . [id number] [facility] Rx#:[id number] Oral 500 Other: Voiding Method Toilet Toilet Toilet # Voids 3 - Exam General examination - Alert and Oriented 3 in NAD Heart - + S1S2 no murmurs Lungs -diminished breath sounds bilaterally Abdomen soft NT ND +ve BS Extremities - No edema [place]NER - Moving all 4 extremities spontaneously Psych - Calm and cooperative - Labs CBC & Chem 7: 10/12/21 05:50 10/12/21 05:50 Labs: Abnormal Lab Results - Last 24 Hours (Table) 10/12/21 10/12/21 Range/Units 05:50 05:50 WBC 12.22 H (4.50-10.00) X 10*3/uL RBC 4.11 L (4.40-5.60) X 10*6/uL Hgb 12.9 L (13.0-17.0) g/dL Hct 39.5 L (39.6-50.0) % Sodium 133 L (135-145) mmol/L Potassium 3.2 L (3.5-5.5) mmol/L Glucose 133 H (70-110) mg/dL Calcium 8.6 L (8.7-10.3) mg/dL Microbiology - Last 24 Hours (Table) 10/11/21 12:25 Gram Stain - Preliminary Bronchial Washings - Right Bronchial Washings Culture - Preliminary 10/11/21 07:30 Gram Stain - Preliminary Sputum Sputum Culture - Preliminary 10/11/21 12:25 Fungal Culture - Preliminary Bronchoalviolar Lavage - Right 10/11/21 12:25 Acid Fast Bacilli Culture - Preliminary Bronchoalviolar Lavage - Right 10/10/21 11:43 Blood Culture - Preliminary Blood No Growth after 24 hours 10/10/21 11:30 Blood Culture - Preliminary Blood No Growth after 24 hours Assessment and Plan Assessment: Right upper lobe consolidation with right hilar adenopathy Patient meets sepsis criteria (tachycardia and tachypnea) on admission -Unclear etiology at this time but differential does include pneumonia versus neoplasm versus other etiology -Proalcitonin is elevated so likely pneumonia -Resume IV Rocephin and azithromycin -Follow up on blood cultures -Follow up on cultures and cytology from bronchoscopy done on 10/11/2021 -Legionella antigen is negative -Patient currently satting well on room air -Lactic acid normalized -Pulmonology started the patient on IV Solu-Medrol for pleuritic chest pain -Patient also started on [place] for his chest pain -CT chest negative for pulmonary embolism CODE STATUS:full code DVT prophylaxis: mechanical Discussed with: Patient, ER, rn Anticipated length of stay < than [address]: home A total of 50 minutes was spent on the care of this complex patient more than 50% of the time was spent in counseling and care coordination.
[2021-10-12] MEDS: methylPREDNISolone SOD SUCCI 40 MG/ML 1 ML VIAL IV SCH ×2 (15:14→22:37)
[2021-10-13 05:50] VITALS: BP 142/89; RESP 18; TEMP 98.6
[2021-10-13] MEDS: IPRATROPIUM-ALBUTEROL 3 ML NEB INHALATION SCH ×2 (07:29→11:29)
[2021-10-13 07:33] VITALS: PULSE 94
[2021-10-13 08:51] LABS: Basophils # (A) 0.02 X 10*3/uL (0.00-0.10); Basophils % (A) 0.2 %; Eosinophils # (A) 0 X 10*3/uL (0.04-0.35); Eosinophils % (A) 0 %; HGB 12.9 g/dL (13.0-17.0); Immature Grans, Automated 2.8 %; Lymphocytes # (A) 0.96 X 10*3/uL (0.90-5.00); Lymphocytes % (A) 8.3 %; MCH 31.7 pg (27.0-32.0); MCHC 33.1 g/dL (32.0-37.0); MCV 95.8 fL (80.0-97.0); Mean Platelet Volume 10.3 fL (9.5-12.2); Monocytes # (A) 0.37 X 10*3/uL (0.20-1.00); Monocytes % (A) 3.2 %; NRBC Per 100 WBC 0 /100 WBCS (0.0-0.0); Neutrophils # (A) 9.85 X 10*3/uL (1.80-7.70); Neutrophils % (A) 85.5 %; Platelet Count 290 X 10*3/uL (140-440); RBC 4.07 X 10*6/uL (4.40-5.60); RDW 13.2 % (11.5-14.5); WBC 11.52 X 10*3/uL (4.50-10.00)
[2021-10-13] MEDS: ENOXAPARIN 40 MG/0.4 ML SYRINGE SQ SCH (08:51)
[2021-10-13] MEDS: PANTOPRAZOLE 40 MG/10 ML VIAL IVP SCH (08:51)
[2021-10-13] MEDS: LOSARTAN-HCTZ 50-12.5 MG 1 EACH TAB PO SCH (08:51)
[2021-10-13] MEDS: methylPREDNISolone SOD SUCCI 40 MG/ML 1 ML VIAL IV SCH (08:52)
[2021-10-13] MEDS: HYDROcodone/APAP 5-325MG 1 EACH TAB PO PRN (08:55)
[2021-10-13 09:21] LABS: African American GFR (CKD) 133.2 (60.0-200.0); Anion Gap 10.4 mmol/L (10.00-18.00); BUN/Creat Ratio 20.46 Ratio (12.00-20.00); Blood Urea Nitrogen 16.1 mg/dL (9.0-27.0); Calcium 9.2 mg/dL (8.7-10.3); Carbon Dioxide 25.8 mmol/L (20.0-27.5); Non-African American GFR(CKD) 114.9 (60.0-200.0); Potassium 4.7 mmol/L (3.5-5.5)
[2021-10-13] MEDS: AZITHROMYCIN 500 MG in SODIUM CHLORIDE 0.9% 250 ML IVPB SCH (09:25)
--- NOTE | 2021-10-13 13:13 | P.PN ---
Subjective Progress Note Date: 10/13/21 On today's evaluation of 10/12/2021, the patient is feeling better. No active pain or pleurisy at this point. He is ambulating. He remains on room air oxygen. Bronchoscopy was done. Transbronchial biopsies are still pending for now. Meanwhile, all of the cultures as well as been negative including negative COVID 19 infection, negative for Legionella urine antigen. The patient is also negative for influenza A and B. No fever. White cell count is minimally elevated. Noted the patient's level was elevated and as such was suspected bacterial infection. cat scan of the chest that was repeated in the hospital showed no significant interval change and the patient continued to have extensive consolidation of the right lung. he is currently on a combination of rocephin and zithromax. Objective - Vital Signs Vital signs: Vital Signs Temp 98.6 F 10/13/21 05:00 Pulse 94 10/13/21 07:30 Resp 18 10/13/21 05:00 BP 142/89 10/13/21 05:00 Pulse Ox 94 L 10/13/21 07:30 FiO2 Intake & Output 10/12/21 10/13/21 10/13/21 18:59 06:59 18:59 Intake Total 1500 800 Balance 1500 800 Intake: Intake, IV Titration 300 Amount Azithromycin 500 mg In 250 Sodium Chloride 0.9% 250 ml @ 250 mls/hr IVPB DAILY [facility] Rx#:[id number] cefTRIAXone 1 gm In 50 Sodium Chloride 0.9% 50 ml @ 100 mls/hr IVPB Q24HR [facility] Rx#:[id number] Oral 1200 800 Other: Voiding Method Toilet Toilet # Voids 4 2 - Exam GENERAL EXAM: Alert, 36-year-old male patient, on room air, fairly comfortable i n no apparent distress. HEAD: Normocephalic. EYES: Normal reaction of pupils, equal size. NOSE: Clear with pink turbinates. THROAT: No erythema or exudates. NECK: No masses, no JVD. CHEST: No chest wall deformity. LUNGS: Equal air entry with crackles, rhonchi in the right lung. CVS: S1 and S2 normal with no audible murmur, regular rhythm. ABDOMEN: No hepatosplenomegaly, normal bowel sounds, no guarding or rigidity. SPINE: No scoliosis or deformity SKIN: No rashes CENTRAL NERVOUS SYSTEM: No focal deficits, tone is normal in all 4 extremities. EXTREMITIES: There is no peripheral edema. No clubbing, no cyanosis. Peripheral pulses are intact. - Labs CBC & Chem 7: 10/13/21 05:30 10/13/21 05:30 Labs: Abnormal Lab Results - Last 24 Hours (Table) 10/13/21 10/13/21 Range/Units 05:30 05:30 WBC 11.52 H (4.50-10.00) X 10*3/uL RBC 4.07 L (4.40-5.60) X 10*6/uL Hgb 12.9 L (13.0-17.0) g/dL Hct 39.0 L (39.6-50.0) % Immature Gran # 0.32 H (0.00-0.04) X 10*3/uL Neutrophils # 9.85 H (1.80-7.70) X 10*3/uL Eosinophils # 0 L (0.04-0.35) X 10*3/uL BUN/Creatinine Ratio 20.46 H (12.00-20.00) Ratio Glucose 168 H (70-110) mg/dL Microbiology - Last 24 Hours (Table) 10/11/21 12:25 Gram Stain - Final Bronchial Washings - Right Bronchial Washings Culture - Final 10/11/21 07:30 Gram Stain - Final Sputum Sputum Culture - Final 10/11/21 12:25 Acid Fast Bacilli Smear - Final Bronchoalviolar Lavage - Right Acid Fast Bacilli Culture - Preliminary 10/10/21 11:43 Blood Culture - Preliminary Blood No Growth after 48 hours 10/10/21 11:30 Blood Culture - Preliminary Blood No Growth after 48 hours Assessment and Plan Plan: Right upper lobe pneumonia, possibly bacterial Legionella screen negative. Coronavirus negative. Blood and sputum cultures pending. Pro-calcitonin 2.93. Bronchoscopy with BAL, brushings and biopsies performed on 10/11/2021. Cultures and cytology pending. data the patient is improving. Highly suspect bacterial infection. we'll discharge him home on Levaquin 750 mg for the total of 10 days with a follow-up regarding the right lung consolidation. Lifetime nonsmoker Lactic acidosis, mild, improved Periodic difficulty swallowing and reflux Large splenic lesion measuring 5.7 cm, probable cyst Plan: The patient can be discharged home. He should rest at home for another one week. Levaquin for a total of 10 days 750 mg by mouth daily Awaiting final results of the cultures and biopsies from the right upper lobe Seen back in the office in 2 weeks time.
--- NOTE | 2021-10-13 13:40 | P.DS ---
Providers Date of admission: 10/10/21 12:09 Expected date of discharge: 10/13/21 Attending physician: Flako Bruner MD Consults: 10/10/21 11:55 Consult Physician Urgent Consulting Provider: Michael Deleon Consult Reason/Comments: Pneumonia, lung consolidation Do you want consulting provider notified?: Yes 10/10/21 12:05 Consult Physician Routine Consulting Provider: Lis Jorgensen Consult Reason/Comments: Possible GERD, pneumonia Do you want consulting provider notified?: Yes Primary care physician: Ricky Finn Hospital Course: Discharge Diagnosis: Right upper lung pneumonia Sepsis Pleuritic chest pain secondary to above Hospital Course: 36-year-old male patient who was seen for the first time today in the pulmonary office by Dr. Rolon on 10/10/2021 40 evaluation of extensive right lung pneumonia. Patient reports having symptoms for several weeks, with right-sided pleuritic chest discomfort, and dyspnea. He had a chest x-ray done at the urgent care clinic and was found to have an extensive consolidation of the right upper lobe. Patient's primary care physician, Dr. Finn obtained computed tomography scan of the chest which showed significant dense consolidation of the right upper lobe, with air bronchograms and right hilar adenopathy. There were other multifocal numerous nodular densities in the right middle and right lower lobe and left lower lobe with the possibility of postinfectious or postinflammatory etiology. Neoplastic process could not be completely excluded although infectious process was favored. There was an indeterminate large splenic lesion measuring 5.7 cm with a recommendation for follow-up ultrasound. Patient reports being treated with antibiotics on outpatient basis and she would feel better while on antibiotics however start feeling worse after completion of antibiotics. Patient reports sweats and chills, and in the last couple of days he reports having episodic hemoptysis. 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 More recently he was power washing a trailer with some acid material and there was some missed, and off this treatment and the patient was inhaling the fumes, made him quite short of breath. Patient is a lifetime nonsmoker. No history of asthma. No history of emphysema or previous pneumonias. Patient is currently taking a course of Levaquin 500 mg via mouth daily and doxycycline in addition to prednisone. He was started on a rescue inhaler. Repeat chest x-ray was done showing a dense consolidation of the right upper lobe which remained essentially unchanged. He does not have any exposure to birds. He has several animals around the house including doxepin and dogs and cats. In view of lack of improvement on patient's chest x-ray findings and continued shortness of breath, sweats, hemoptysis, patient was sent to the emergency department for evaluation, IV antibiotics, and possible bronchoscopy with BAL. Lab work in the ER showed white blood cell count of 8.7, hemoglobin of 12.7, coagulation profile was within normal limits, sodium is 141, potassium is 3.4, chloride is 106, CO2 is 22, BUN is 22, creatinine 0.80, lactic acid is 2.2, LFTs were within normal limits, troponin was less than 0.012. Patient was seen by pulmonology and had a bronchoscopy done. On the third day of admission patient reported significant improvement in his symptoms. He reported that his pain had improved. Patient states that he was walking the hallways. He was satting well on room air. He wanted to get discharge. Pulmonology recommended 10 more days of Levaquin. He was told by pulmonology to follow up in the clinic. Patient seen and examined at bedside.[] Vital signs reviewed and stable. General: [non toxic], [no distress], [appears at stated age] Derm: [warm], [dry] Head: [atraumatic], [normocephalic], [symmetric] Eyes: [EOMI], [no lid lag], [anicteric sclera] Mouth: [no lip lesion], [mucus membranes moist] Cardiovascular: [S1S2 reg], [no murmur], [positive posterior tibial pulse bilateral], Lungs: [CTA bilateral], [no rhonchi, no rales] , [no accessory muscle use] Abdominal: [soft], [ nontender to palpation], [no guarding], [no appreciable organomegaly] Ext: [no gross muscle atrophy], [no edema], [no contractures] Neuro: [ CN II-XI grossly intact], [no focal neuro deficits] Psych: [Alert], [oriented], [appropriate affect] A total of [33] minutes of time were spent preparing this complex discharge summary . Patient Condition at Discharge: Fair Plan - Discharge Summary Discharge Rx Participant: No New Discharge Prescriptions: New Losartan-Hctz 50-12.5 mg [Hyzaar 50-12.5] 1 each PO DAILY 30 Days #30 tab Levofloxacin [Levaquin] 750 mg PO DAILY 7 Days #7 tab Continue SILVER sulfADIAZINE Cream [Silvadene 1% Cream] 1 applic TOPICAL DAILY PRN PRN Reason: groin HYDROcodone/APAP 5-325MG [[place] 5-325] 1 tab PO BID Discontinued Doxycycline Hyclate 100 mg PO BID predniSONE [Deltasone] 40 mg PO DAILY Levofloxacin [Levaquin] 500 mg PO DAILY Discharge Medication List HYDROcodone/APAP 5-325MG [[place] 5-325] 1 tab PO BID 10/10/21 [History] SILVER sulfADIAZINE Cream [Silvadene 1% Cream] 1 applic TOPICAL DAILY PRN 10/10/21 [History] Levofloxacin [Levaquin] 750 mg PO DAILY 7 Days #7 tab 10/13/21 [Rx] Losartan-Hctz 50-12.5 mg [Hyzaar 50-12.5] 1 each PO DAILY 30 Days #30 tab 10/13/21 [Rx] Follow up Appointment(s)/Referral(s): Ricky Finn DO [Primary Care Provider] - 1-2 days Beryl Rolon MD [STAFF PHYSICIAN] - 1 Week Discharge Disposition: HOME SELF-CARE
--- NOTE | 2021-10-13 14:37 | P.CONS ---
History of Present Illness - Reason for Consult Consult date: 10/13/21 GERD Requesting physician: Michael Deleon - Chief Complaint Shortness of breath - History of Present Illness This is a pleasant 36-year-old male who presented to the emergency department 3 days ago with complaints of shortness of breath. Apparently patient had been seen outpatient by Dr. Rolon for right lung pneumonia. Patient was having symptoms for several weeks with right-sided pleuritic chest pain and dyspnea. He presented to the emergency department for further treatment of his pneumonia. Apparently patient had mentioned that he occasionally gets acid reflux once or twice a month depending on what he eats. Gastroenterology was consulted for this reason. Patient denies any abdominal pain, nausea vomiting. States shortness of breath and cough has improved. Denies any acid reflux during this admission. States it is mostly with certain foods that he eats or after eating out at a restaurant and drinking fountain pop. Patient states he occasionally will take omeprazole for the acid reflux. No previous history of peptic ulcer disease. No previous EGD. Denies frequent use of NSAIDs. Review of Systems REVIEW OF SYSTEMS: CARDIOPULMONARY: No chest pain or shortness of breath. Gastrointestinal: Occasional acid reflux, burning sensation in chest. No nausea or vomiting. No hematemesis, coffee-ground emesis. No rectal bleeding, or melena. GENITOURINARY: No dysuria or hematuria. MUSCULOSKELETAL: Reports normal range of motion., Joint pain. SKIN: No rashes. No jaundice. ENDOCRINE: No chills, fevers. No excessive weight gain or loss. No polydipsia or polyuria. PSYCHIATRIC: Unremarkable. NEUROLOGY: No change in mental status. Denies dizziness, headache. ENT: Vision unremarkable. CONSTITUTIONAL: No recent weight loss. No fever, chills, night sweats. Past Medical History Past Medical History: No Reported History History of Any Multi-Drug Resistant Organisms: None Reported Past Surgical History: No Surgical Hx Reported Past Anesthesia/Blood Transfusion Reactions: Unable to Obtain Additional Past Anesthesia/Blood Transfusion Reaction / Comm: Pt has never had surgery Past Psychological History: No Psychological Hx Reported Smoking Status: Never smoker Past Alcohol Use History: Occasional Past Drug Use History: None Reported - Past Family History Father History Unknown: Yes Mother Family Medical History: Cancer Medications and Allergies Home Medications Medication Instructions Recorded Confirmed Type HYDROcodone/APAP 5-325MG [[place] 1 tab PO BID 10/10/21 10/10/21 History 5-325] SILVER sulfADIAZINE Cream 1 applic TOPICAL DAILY PRN 10/10/21 10/10/21 History [Silvadene 1% Cream] Levofloxacin [Levaquin] 750 mg PO DAILY 7 Days #7 tab 10/13/21 Rx Losartan-Hctz 50-12.5 mg [Hyzaar 1 each PO DAILY 30 Days #30 tab 10/13/21 Rx 50-12.5] Allergies Allergy/AdvReac Type Severity Reaction Status Date / Time naproxen [From Aleve] Allergy Rash/Hives Verified 10/10/21 13:08 Physical Exam Vitals: Vital Signs Temp Pulse Pulse Resp BP Pulse Ox 10/13/21 07:30 94 94 L 10/13/21 05:00 98.6 F 85 18 142/89 94 L 10/12/21 21:00 98.9 F 117 H 20 152/86 96 10/12/21 19:50 90 10/12/21 19:38 100 96 10/12/21 15:43 82 10/12/21 15:34 80 10/12/21 13:55 98.8 F 106 H 16 136/91 94 L 10/12/21 12:00 94 L 10/12/21 10:52 92 10/12/21 10:41 92 Intake and Output 10/12/21 10/13/21 10/13/21 22:59 06:59 14:59 Intake Total 1500 800 Balance 1500 800 Intake: Intake, IV Titration 300 Amount Azithromycin 500 mg In 250 Sodium Chloride 0.9% 250 ml @ 250 mls/hr IVPB DAILY [facility] Rx#:[id number] cefTRIAXone 1 gm In 50 Sodium Chloride 0.9% 50 ml @ 100 mls/hr IVPB Q24HR [facility] Rx#:[id number] Oral 1200 800 Other: Voiding Method Toilet # Voids 4 2 General appearance: The patient is alert, oriented, appears in no acute distress. HET: Head is normocephalic and atraumatic. Conjunctiva pink. Sclera anicteric. Neck: Supple without lymphadenopathy. Trachea midline. Heart: S1 S2. Regular rate and rhythm. Lungs: Crackles in the right lung. Abdomen: Soft, nontender, nondistended with bowel sounds. No guarding or rigidity. Skin: No rashes. No jaundice. Extremities: Normal skin color and turgor. No pedal edema. Neurological: No focal deficits. Alert and oriented x3. Results CBC & Chem 7: 10/13/21 05:30 10/13/21 05:30 Labs: Abnormal Lab Results - Last 24 Hours (Table) 10/12/21 10/12/21 10/13/21 Range/Units 05:50 05:50 05:30 WBC 12.22 H 11.52 H (4.50-10.00) X 10*3/uL RBC 4.11 L 4.07 L (4.40-5.60) X 10*6/uL Hgb 12.9 L 12.9 L (13.0-17.0) g/dL Hct 39.5 L 39.0 L (39.6-50.0) % Immature Gran # 0.32 H (0.00-0.04) X 10*3/uL Neutrophils # 9.85 H (1.80-7.70) X 10*3/uL Eosinophils # 0 L (0.04-0.35) X 10*3/uL Sodium 133 L (135-145) mmol/L Potassium 3.2 L (3.5-5.5) mmol/L BUN/Creatinine Ratio (12.00-20.00) Ratio Glucose 133 H (70-110) mg/dL Calcium 8.6 L (8.7-10.3) mg/dL 10/13/21 Range/Units 05:30 WBC (4.50-10.00) X 10*3/uL RBC (4.40-5.60) X 10*6/uL Hgb (13.0-17.0) g/dL Hct (39.6-50.0) % Immature Gran # (0.00-0.04) X 10*3/uL Neutrophils # (1.80-7.70) X 10*3/uL Eosinophils # (0.04-0.35) X 10*3/uL Sodium (135-145) mmol/L Potassium (3.5-5.5) mmol/L BUN/Creatinine Ratio 20.46 H (12.00-20.00) Ratio Glucose 168 H (70-110) mg/dL Calcium (8.7-10.3) mg/dL Microbiology - Last 24 Hours (Table) 10/11/21 07:30 Gram Stain - Final Sputum Sputum Culture - Final 10/11/21 12:25 Acid Fast Bacilli Smear - Final Bronchoalviolar Lavage - Right Acid Fast Bacilli Culture - Preliminary 10/10/21 11:43 Blood Culture - Preliminary Blood No Growth after 48 hours 10/10/21 11:30 Blood Culture - Preliminary Blood No Growth after 48 hours 10/11/21 12:25 Gram Stain - Preliminary Bronchial Washings - Right Bronchial Washings Culture - Preliminary Assessment and Plan (1) GERD (gastroesophageal reflux disease) Narrative/Plan: 36-year-old female who was admitted to the hospital for recurrent pneumonia. Has a history of occasional acid reflux. Patient states is diet related. Occasionally takes omeprazole. No history of EGD, peptic ulcer disease, or frequent NSAID use. Gastroenterology was consulted for acid reflux. Will treat conservatively with medication. No plans on endoscopic evaluation. Discussed with patient to avoid caffeine, smoking, alcohol, acidic foods, eating late at night, and encouraged to take omeprazole. Status: Acute Code(s): K21.9 - GASTRO-ESOPHAGEAL REFLUX DISEASE WITHOUT ESOPHAGITIS SNOMED Code(s): 216583058 (2) Pneumonia Status: Acute Code(s): J18.9 - PNEUMONIA, UNSPECIFIED ORGANISM SNOMED Code(s): 330043712 Plan: 1. Continue symptomatic and supportive care 2. No plan for an endoscopic evaluation 3. Recommend omeprazole 40 mg daily outpatient 4. Discussed with patient to avoid caffeine, acidic foods, smoking, eating late at night 5. Follow-up with gastroenterology as needed. Thank you for this consultation, we will sign off at this time. Dr. Javid Jorgensen I agree with the dictator's note, documented as a scribe by Karlee Montemayor.
== END 2021-10-13 14:26 | disposition home or self-care (01) | DRG 853 ==
LOC: EC 11:00 → 5NMEDONC 12:09
PROVIDERS: ADMIT Internal Medicine; ATTEND Internal Medicine
PROC: 0BBC8ZX Excision of Right Upper Lung Lobe, Via Natural or Artificial Opening Endoscopic, Diagnostic (ICD-10-PCS; principal; 2021-10-11 12:30)
PROC: 0BD48ZX Extraction of Right Upper Lobe Bronchus, Via Natural or Artificial Opening Endoscopic, Diagnostic (ICD-10-PCS; principal; 2021-10-11 12:30)
PROC: 0B9C8ZX Drainage of Right Upper Lung Lobe, Via Natural or Artificial Opening Endoscopic, Diagnostic (ICD-10-PCS; principal; 2021-10-11 12:30)
DX: A41.9 Sepsis, unspecified organism (principal); J18.9 Pneumonia, unspecified organism; E87.2 Acidosis; R04.2 Hemoptysis; J47.0 Bronchiectasis with acute lower respiratory infection; R13.10 Dysphagia, unspecified; K21.9 Gastro-esophageal reflux disease without esophagitis; R59.0 Localized enlarged lymph nodes; D73.4 Cyst of spleen; Z28.310 Unvaccinated for COVID-19; Z20.822 Contact with and (suspected) exposure to COVID-19; Z88.6 Allergy status to analgesic agent; Z57.5 Occupational exposure to toxic agents in other industries; Z80.9 Family history of malignant neoplasm, unspecified
CPT/HCPCS: 31623; 31624; 31625; 36415; 71045; 71046; 71275; 76705; 80048; 80053; 83605; 83735; 83880; 84145; 84484; 85025; 85027; 85610; 85730; 87040; 87070; 87102; 87116; 87205; 87206; 87252; 87449; 87635; 88104; 88108; 88305; 89050; 93005; 94640; 96365; 96367; 96375; 99285

== ENCOUNTER → 2024-09-25 | Outpatient (CLI) | payer OTHER ==
--- NOTE | 2024-09-26 08:00 | XR ---
EXAMINATION TYPE: XR ankle complete LT DATE OF EXAM: 09/25/2024 3:22 PM COMPARISON: None CLINICAL INDICATION: Male, 39 years old with history of [id number] LT ANKLE PAIN; YCH, pain TECHNIQUE: 3 views FINDINGS: Tiny plantar heel spur. Ankle mortise is congruent with preservation of the distal tibiofibular overl ap. Talar dome is intact. Mild bimalleolar soft tissue swelling. There may be underlying anterior tib iotalar joint effusion. IMPRESSION: 1. Mild bimalleolar soft tissue swelling and underlying ankle joint effusion. 2. No acute osseous abnormality seen. [facility], Workstation: [facility], 09/26/2024 7:58 AM
== END | disposition home or self-care (01) ==
LOC: RADXRYALE 15:06
PROVIDERS: ATTEND Physician Assistant
DX: M25.472 Effusion, left ankle (principal)